=== PATIENT | male | born 1980 | race Caucasian/White ===

== ENCOUNTER → 2020-05-05 11:06 | Outpatient (CLI) | payer BC, SELFPAY ==
--- NOTE | 2020-05-05 | DI.US.S_ITS ---
PROCEDURE: US ABDOMEN LIMITED INDICATIONS: Other specified abnormalities of plasma proteins TECHNIQUE: Real-time scanning was performed of the abdominal and retroperitoneal organs, with image documentation. COMPARISON: None. FINDINGS: Liver: The liver is mildly enlarged in size. The liver demonstrates diffusely increased echotexture without focal abnormalities consistent with chronic hepatocellular disease/hepatic steatosis. There is some areas of focal fatty sparing near the gallbladder fossa. Gallbladder: Gallbladder is normal in sonographic appearance without gallstones, gallbladder wall thickening, pericholecystic fluid, or abnormal sonographic Kohler's. Biliary ducts: Intrahepatic bile ducts are non-dilated. Extrahepatic bile duct caliber measures 3 mm. Normal is 6-7 mm or less in diameter, or 10 mm or less post-cholecystectomy. Pancreas: Visualized portions of the pancreas are sonographically normal. IMPRESSION: Minimal hepatomegaly. The liver demonstrates diffusely increased echotexture without focal abnormalities consistent with chronic hepatocellular disease/hepatic steatosis. Unremarkable sonographic evaluation of the gallbladder and pancreas. Dictated by: Rainer Espinoza M.D. on 05/05/2020 at 15:00 Approved by: Rainer Espinoza M.D. on 05/05/2020 at 15:03
== END ==
PROVIDERS: PCP Family Medicine; Referring Provider Naturopath; Visit Provider Naturopath
DX: R77.8 Other specified abnormalities of plasma proteins (principal)
CPT/HCPCS: 76705

== ENCOUNTER → 2020-10-27 10:08 | Outpatient (CLI) | payer BC, SELFPAY ==
--- NOTE | 2020-10-27 10:09 | DI.US.S_ITS ---
PROCEDURE: US ABDOMEN LIMITED INDICATIONS: RE-EVALUATE FATTY LIVER TECHNIQUE: Real-time focused scanning was performed of the abdomen, with image documentation. COMPARISON: [facility], US, US ABDOMEN LIMITED, 05/05/2020, 11:52. FINDINGS: Liver is diffusely increased in echogenicity. No focal hepatic abnormalities identified. Normal hepatic size. Focal fatty sparing again seen adjacent to the gallbladder. No gallstones identified. Normal gallbladder wall. No pericholecystic fluid. Negative sonographic Kohler sign. No biliary dilatation. IMPRESSION: 1. Increased hepatic echogenicity noted possibly related to hepatic steatosis but other sources of hepatocellular disease cannot be excluded. Recommend clinical correlation. Findings appear similar to prior examination dated 05/05/2020. Dictated by: Jimmy YATES Interpreted: Rainer Espinoza MD on 10/27/2020 at 11:55 Transcribed by: DIOMEDES on 10/27/2020 at 11:56 Approved by: Charlie Montero M.D. on 10/27/2020 at 13:34
== END ==
PROVIDERS: PCP Family Medicine; Referring Provider Naturopath; Visit Provider Naturopath
DX: K76.0 Fatty (change of) liver, not elsewhere classified (principal)
CPT/HCPCS: 76705